=== PATIENT | female | born 1995 | race Caucasian/White ===

== ENCOUNTER 2019-07-08 21:27 | Emergency (ER) | payer OTHER ==
--- NOTE | 2019-07-08 22:24 | ED ---
Laceration/Wound HPI - HPI Summary HPI Summary: This patient is a 24 year old F presenting to ED with a chief complaint of L hand laceration since 2099 today. Patient was at work polishing a wine glass. The wine glass broke and caused the laceration. The patient rates the pain 2/10 in severity. Symptoms aggravated by nothing. Symptoms alleviated by nothing. Patient denies fever. - History of Current Complaint Stated Complaint: HAND LAC PER PT Time Seen by Provider: 07/08/19 22:19 Hx Obtained From: Patient Mechanism of Injury: Sharp/Blunt Trauma Onset/Duration: Sudden Onset, Lasting Hours - At 2100, Still Present Aggravating: Nothing Alleviating: Nothing Timing: Constant Onset Severity: Mild Current Severity: Mild Pain Intensity: 2 Pain Scale Used: 0-10 Numeric Associated Signs & Symptoms: Negative - Fever - Allergy/Home Medications Allergies/Adverse Reactions: Allergies Allergy/AdvReac Type Severity Reaction Status Date / Time No Known Allergies Allergy Verified 07/08/19 21:29 PMH/Surg Hx/FS Hx/Imm Hx Endocrine/Hematology History: Denies: Hx Diabetes Cardiovascular History: Denies: Hx Hypercholesterolemia, Hx Hypertension Respiratory History: Reports: Hx Asthma - Surgical History Surgery Procedure, Year, and Place: None Infectious Disease History: No Infectious Disease History: Denies: Traveled Outside the [place] in Last 30 Days - Family History Known Family History: Negative: Hypertension, Diabetes - Social History Alcohol Use: Occasionally Hx Substance Use: Yes Substance Use Type: Reports: Marijuana Hx Tobacco Use: Yes Smoking Status (MU): Current Some Day Smoker Review of Systems Negative: Fever Skin: Other - Laceration to L hand All Other Systems Reviewed And Are Negative: Yes Physical Exam - Summary Physical Exam Summary: Appearance: Well-appearing, Well-nourished, lying in bed comfortable Skin: Warm, dry, no obvious rash Eyes: sclera anicteric, no conjunctival pallor ENT: mucous membranes moist Neck: deferred Respiratory: No signs of respiratory distress Cardiovascular: Appears well perfused, pulses are nml Abdomen: deferred Musculoskeletal: 2cm laceration overlying the radial side of the first MCP joint. There is what appears to be a visible cut tendon end on the distal side. Neurological: Awake and alert, mentation is normal, speech is fluent and appropriate Psychiatric: affect is normal, does not appear anxious or depressed Triage Information Reviewed: Yes Vital Signs On Initial Exam: Initial Vitals Temp Pulse Resp BP Pulse Ox 98.4 F 56 15 145/87 100 07/08/19 21:27 07/08/19 21:27 07/08/19 21:27 07/08/19 21:27 07/08/19 21:27 Vital Signs Reviewed: Yes Procedures - Sedation Patient Received Moderate/Deep Sedation with Procedure: No - Splinting 1 Location: left thumb Hand-Made Type: orthoglass Splint: thumb spica Pre-Proc Neuro Vasc Exam: normal Post-Proc Neuro Vasc Exam: normal Splint Applied by Provider: Clayton Welch - Laceration/Wound Repair 1 Location: upper extremity - left lateral thumb Description: Linear Anesthesia: Local, 1.0% Length, Depth and Shape: 3cm x 1cm Betadine Prep?: No - chlorhexidine Irrigated w/ Saline (ccs): 400 Laceration/Wound Explored: clean Suture Type: Prolene Number of Sutures: 7 - 4.0 Layer Closure?: No Sterile Dressing Applied?: No Diagnostics - Vital Signs Vital Signs Temp Pulse Resp BP Pulse Ox 07/08/19 21:27 98.4 F 56 15 145/87 100 - Laboratory Lab Statement: Any lab studies that have been ordered have been reviewed, and results considered in the medical decision making process. Re-Evaluation - Re-Evaluation First Eval Re-Evaluation Time: 23:09 Comment: Discussed results with patient and instructions to follow-up with hand clinic. RADHA Rosenberg, will suture the wound. Laceration Repair Course/Dx - Course Course Of Treatment: This patient is a 24 year old F presenting to ED with a chief complaint of L hand laceration since 2100 today. The wound was cleaned, closed, and splinted by RADHA Rosenberg. Patient will follow-up with hand clinic. Patient will be discharged home with dx of left hand laceration. Patient understands and agrees with this plan. - Clinical Impression Provider Diagnoses: Laceration - Physician Notifications Discussed Care Of Patient With: Matt Fung Time Discussed With Above Provider: 22:38 Instructed by Provider To: Have Pt Call For Appt. - Discussed patient case with Dr. Fung, who recommended washing, cleaning, and closing the wound. He will see the patient in the hand clinic. Discharge ED - Sign-Out/Discharge Documenting (check all that apply): Patient Departure - Discharge Plan Condition: Stable Disposition: HOME Patient Education Materials: Care For Your Stitches (ED), Finger Laceration (ED ) Referrals: Feliciano Cotto MD [Primary Care Provider] - Matt Fung MD [Medical Doctor] - Additional Instructions: Sutures come out in 10 days. May wash wound with warm running water and soap. Keep clean and dry and protected when not washing. Wear splint until you are evaluated by orthopedics Dr. Fung. Return to the ED for any concerning symptoms. - Billing Disposition and Condition Condition: STABLE Disposition: Home - Attestation Statements Document Initiated by Fredo: Yes Documenting Scribe: Angel Morales Provider For Whom Fredo is Documenting (Include Credential): Yair Hinojosa MD Scribe Attestation: IAngel, scribed for Yair Hinojosa MD on 07/16/19 at 0514. Scribe Documentation Reviewed: Yes Provider Attestation: The documentation as recorded by the Angel awad accurately reflects the service I personally performed and the decisions made by me, Yair Hinojosa MD Status of Scribe Document: Viewed
[2019-07-08] MEDS ORDERED: Tetan/Diph/Pertus SYR(Tdap)* 0.5 ML SYR(BOOSTRIX) use SYR contains LATEX IM ONE (23:37)
[2019-07-09 00:01] VITALS: BP 144/68
== END 2019-07-09 | disposition home or self-care (01) ==
LOC: ED 21:27
DX: S61.412A Laceration without foreign body of left hand, initial encounter (principal); W25.XXXA Contact with sharp glass, initial encounter; Y92.9 Unspecified place or not applicable; Z72.0 Tobacco use
CPT/HCPCS: 12002; 90471; 90715; 99282

== ENCOUNTER 2019-07-26 15:17 | Emergency (ER) | payer OTHER ==
--- OUTSIDE RECORDS SUMMARY | 2019-07-26 15:22 | XMS REPORT | Continuity of Care Document ---
:1995 External Reference #:[id number] Author Name Fallon Carty M.D. 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 Problems Description No Information Available Social History Type Date Description Comments Sex Unknown ETOH Use Occasionally consumes alcohol Tobacco Use Start: Unknown Patient is a current smoker, smokes some days Smoking Status Reviewed: 07/09/19 Patient is a current smoker, smokes some days Exercise Type/Frequency Exercises sporadically Allergies, Adverse Reactions, Alerts Description No Known Drug Allergies Medications Description No Active Medications Immunizations Description No Information Available Vital Signs Date Vital Result Comment 07/09/2019 2:32pm Height 70.25 inches 5'10.25" Weight 125.00 lb Heart Rate 46 /min BP Systolic 128 mmHg BP Diastolic 76 mmHg BMI (Body Mass Index) 17.8 kg/m2 Results Description No Information Available Procedures Description No Information Available Medical Devices Description No Information Available Encounters Description No Information Available Assessments Date Code Description Provider 07/09/2019 S61.012A Laceration without foreign body of left Fallon Carty M.D. thumb without damage to nail, initial encounter Plan of Treatment Future Appointment(s):07/18/2019 10:30 am - Fallon Carty M.D. at [facility] at Rbzqpy0807/09/2019 - Fallon Carty M.D.S61.012A Laceration without foreign body of left thumb without damage to nail, initial encounterFollow up:Follow up: next Wed or Th Functional Status Description No Information Available Mental Status Description No Information Available Referrals Description No Information Available
--- OUTSIDE RECORDS SUMMARY | 2019-07-26 15:22 | XMS REPORT | Continuity of Care Document ---
:1995 External Reference #:[id number] Author Name Fallon Carty M.D. 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 Problems Description No Information Available Social History Type Date Description Comments Sex Unknown ETOH Use Occasionally consumes alcohol Tobacco Use Start: Unknown Patient is a current smoker, smokes some days Smoking Status Reviewed: 07/18/19 Patient is a current smoker, smokes some days Exercise Type/Frequency Exercises sporadically Allergies, Adverse Reactions, Alerts Description No Known Drug Allergies Medications Description No Active Medications Immunizations Description No Information Available Vital Signs Date Vital Result Comment 07/18/2019 10:38am Height 70 inches 5'10" Weight 125.00 lb BP Systolic 112 mmHg BP Diastolic 58 mmHg Body Temperature 97.8 F BMI (Body Mass Index) 17.9 kg/m2 07/09/2019 2:32pm Height 70.25 inches 5'10.25" Weight 125.00 lb Heart Rate 46 /min BP Systolic 128 mmHg BP Diastolic 76 mmHg BMI (Body Mass Index) 17.8 kg/m2 Results Description No Information Available Procedures Description No Information Available Medical Devices Description No Information Available Encounters Type Date Location Provider Dx Diagnosis Office Visit 07/09/2019 [facility] Fallon Carty, S6Ben.012A Laceration w/o fb 1:45p at [facility] of left thumb w/o damage to nail, init Assessments Date Code Description Provider 07/18/2019 Anca1.012D Laceration without foreign body of left Fallon Carty M.D. thumb without damage to nail, subsequent encounter 07/09/2019 Anca1.012A Laceration without foreign body of left Fallon Carty , M.D. thumb without damage to nail, initial encounter Plan of Treatment 07/18/2019 - Fallon Carty M.D.S61.012D Laceration without foreign body of left thumb without damage to nail, subsequent encounterFollow up:Follow up: As needed Functional Status Description No Information Available Mental Status Description No Information Available Referrals Description No Information Available
[2019-07-26 15:29] VITALS: BP 133/89
--- NOTE | 2019-07-26 15:46 | UC ---
Complaint Female HPI - HPI Summary HPI Summary: 24-year-old female who has had burning on urination and frequency since this morning. She denies any fever or chills. - History Of Current Complaint Chief Complaint: UCGU Stated Complaint: UTI Time Seen by Provider: 07/26/19 15:33 Hx Obtained From: Patient Hx Last Menstrual Period: [id number] ?: No Onset/Duration: Gradual Onset Timing: Constant Severity Initially: Mild Severity Currently: Mild Pain Intensity: 6 Character: Burning Aggravating Factor(s): Urination Alleviating Factor(s): Nothing Associated Signs And Symptoms: Positive: Negative. Negative: Vaginal Bleeding/ Discharge, Vaginal Discharge - Allergies/Home Medications Allergies/Adverse Reactions: Allergies Allergy/AdvReac Type Severity Reaction Status Date / Time No Known Allergies Allergy Verified 07/26/19 15:29 PMH/Surg Hx/FS Hx/Imm Hx Previously Healthy: Yes - Surgical History Surgical History: None Surgery Procedure, Year, and Place: None - Family History Known Family History: Negative: Hypertension, Diabetes - Social History Alcohol Use: Weekly Substance Use Type: Marijuana Substance Use Comment - Amount & Last Used: weekly Smoking Status (MU): Current Some Day Smoker Review of Systems All Other Systems Reviewed And Are Negative: Yes Genitourinary: Positive: Dysuria, Frequency, Urgency Is Patient Immunocompromised?: No Physical Exam Triage Information Reviewed: Yes Appearance: Well-Appearing, No Pain Distress, Well-Nourished Vital Signs: Initial Vital Signs Temp 98.2 F 07/26/19 15:24 Pulse 55 07/26/19 15:24 Resp 14 07/26/19 15:24 BP 133/89 07/26/19 15:24 Pulse Ox 100 07/26/19 15:24 Vital Signs Reviewed: Yes Eyes: Positive: Conjunctiva Clear ENT: Positive: Hearing grossly normal, Pharynx normal, TMs normal, Uvula midline Neck: Positive: Supple, Nontender, No Lymphadenopathy Respiratory: Positive: Lungs clear, Normal breath sounds, No respiratory distress, No accessory muscle use Cardiovascular: Positive: RRR, No Murmur, Pulses Normal, Brisk Capillary Refill Abdomen Description: Positive: Nontender, No Organomegaly, Soft. Negative: CVA Tenderness (R), CVA Tenderness (L), Hepatomegaly, Splenomegaly Bowel Sounds: Positive: Present Musculoskeletal Exam: Normal Neurological Exam: Normal Psychological Exam: Normal Skin Exam: Normal Complaint Female Dx - Course Course Of Treatment: Patient is comfortable here. Urine test was negative, urinalysis showed trace leukocyte esterase and blood. I'm going to treat her with Bactrim DS one tab by mouth twice a day 5 days with a definite follow-up with her primary care provider if no improvement in 4 or 5 days. - Differential Dx/Diagnosis Provider Diagnosis: UTI (urinary tract infection) Discharge ED - Sign-Out/Discharge Documenting (check all that apply): Patient Departure All imaging exams completed and their final reports reviewed: No Studies - Discharge Plan Condition: Good Disposition: HOME Prescriptions: Sulfamethox/Trimethoprim DS* [Bactrim DS 800/160 TAB*] 1 tab PO BID 5 Days #10 tab Patient Education Materials: Urinary Tract Infection in Women (DC) Referrals: Feliciano Cotto MD [Primary Care Provider] - Additional Instructions: Increase fluid, take the Bactrim with food, follow-up with your primary care provider if no improvement in 4 or 5 days. Go to the emergency room if you develop any fever, chills, vomiting and unable to keep medicine down. - Billing Disposition and Condition Condition: GOOD Disposition: Home - Attestation Statements Provider Attestation: Per institutional requirements, I have reviewed the chart, however, I was not consulted specifically or made aware of this patient by the midlevel provider. I did not personally evaluate, interact with , or disposition this patient.
== END 2019-07-26 16:05 | disposition home or self-care (01) ==
LOC: UCEAST 15:17
DX: N39.0 Urinary tract infection, site not specified (principal); R31.9 Hematuria, unspecified
CPT/HCPCS: 81003; 84702; 87077; 87086; 99212; G0463